=== PATIENT | female | born 1980 | race Caucasian/White ===

== ENCOUNTER 2025-04-18 20:24 | Emergency (ER) | payer SELFPAY ==
--- NOTE | ~2025-04-18 | XR_ITS ---
CLINICAL HISTORY: pain 2 view chest x-ray Comparison: None provided Findings: No consolidation or effusion. Normal size heart. No acute fracture. IMPRESSION: 1. No acute findings. This document has been electronically signed by: Veronica Ace MD on 04/18/2025 21:39:51
[2025-04-18 20:50] VITALS: BP 128/77; PULSE 80; RESP 16; TEMP 36.3; O2SAT 99; BMI 35.7
--- NOTE | 2025-04-18 20:51 | ED_ITS ---
HPI - General Adult General Chief complaint: Dizziness Stated complaint: High blood pressure Time Seen by Provider: 04/19/25 00:56 Source: patient Limitations: no limitations History of Present Illness ED Provider: Elvira Coleman PA-C HPI narrative: 44-year-old female presents with hypertension. Patient states she has been checking her blood pressure every morning and has been elevated, for unclear duration. Associated intermittent chest pain, shortness of breath dizziness and headache. Patient has not followed up with the primary care provider. Patient's friend gave her some of his lisinopril today. Related Data Allergies Allergy/AdvReac Type Severity Reaction Status Date / Time No Known Allergies Allergy Verified 04/18/25 20:56 Review of Systems 2 Review of Systems: Yes all other systems are reviewed and are negative Constitutional: Constitutional: Denies fatigue, Denies fever(s) and Denies headache(s) ENT: Denies dizziness and Denies headache(s) Cardiovascular: Cardiovascular: Reports chest pain and Reports dyspnea Respiratory: Respiratory: Denies cough and Reports dyspnea Gastrointestinal: Gastrointestinal: Denies nausea and Denies vomiting Neurologic: Denies dizziness and Denies headache(s) Endocrine: Endocrine: Denies fatigue [facility] Past Medical History Attestation statement: The following information was validated with the patient. Social History Social History Alcohol intake: never Smoked in Last 30 Days: Yes Advance Directives: No Do you have a plan to hurt others: No Plan Patient : No Physical Exam ED Vital Signs: BMI result Body Mass Index 35.7 Const Other: Alert Orientation/consciousness: patient oriented x3 Resp Effort & Inspection: normal respiratory effort Cardio Other: Normal peripheral perfusion Skin Other: Warm dry no rash Neuro General: patient oriented x3, gait normal, no focal motor deficits and CN's II- XI intact bilaterally Psych Other: Cooperative Course Course Course Narrative: RME, this is a rapid medical exam performed by Jose Floyd please refer to primary provider for complete H&P- 44-year-old female presents for evaluation of dizziness and shortness of breath. Plan for cardiac workup. EKG, labs, chest x-ray. Medical Decision Making Medical Decision Making [facility] Narrative: 44-year-old female presents with hypertension. Patient states she has been checking her blood pressure every morning and has been elevated, for unclear duration. Associated intermittent chest pain, shortness of breath dizziness and headache. Patient has not followed up with the primary care provider. Patient's friend gave her some of his lisinopril today. No known underlying issues History: Per patient I have considered the following differential diagnoses: ACS, end-organ damage, hypertensive urgency, hypertensive emergency Plan: ACS was considered, Screening labs including cardiac enzymes EKG and chest x-ray were obtained, everything is negative. Furthermore, the patient has no documented elevated blood pressures here in the emergency room, I do not believe that a systolic blood pressure of 200 resolved with the 1 dose of lisinopril. I do not believe her blood pressure cuff at home is accurate. I have advised that the patient should follow up with her primary care provider for further discussion about implementing management of hypertension. I have independently reviewed the following tests: Labs: Slight leukocytosis, not anemic, no electrolyte abnormality, renal function appropriate, troponin negative EKG: Normal sinus rhythm, rate of 77, no ischemic changes no ectopy QTC 466 Chest x-ray:Findings: No consolidation or effusion. Normal size heart. No acute fracture. IMPRESSION: 1. No acute findings. Lab Data 04/18/25 21:32 04/18/25 21:32 Labs: Lab Results 04/18/25 Range/Units 21:32 WBC 12.4 H (4.8-10.8) X10*3/uL RBC 4.96 (4.20-5.50) X10*6/uL Hgb 13.4 (12.0-16.0) g/dl Hct 40.0 (37.0-47.0) % MCV 80.6 (80.0-98.0) fL MCH 27.0 (27.0-33.0) pg MCHC 33.5 (31.0-35.0) g/dl RDW 15.4 (11.0-16.0) % Plt Count 478 H (160-400) X10*3/uL MPV 9.2 L (9.4-12.3) fL Immature Gran % (Auto) 0.6 H (0.0-0.4) % Neut % (Auto) 43.9 L (45-73) % Lymph % (Auto) 45.1 H (20-40) % [place] % (Auto) 5.6 (2-11) % Eos % (Auto) 4.0 (0-4) % Baso % (Auto) 0.8 (0-2) % Lymph # (Auto) 5.6 H (1.2-4.9) X10*3/uL [place] # (Auto) 0.7 (0.1-1.2) X10*3/uL Eos # (Auto) 0.5 H (0.0-0.4) X10*3/uL Baso # (Auto) 0.1 (0.0-0.2) X10*3/uL Abs Immat Gran (auto) 0.08 H (0.00-0.03) X10*3/uL Absolute Neuts (auto) 5.5 (2.0-8.3) x10*3/uL Absolute Nucleated RBC 0.000 (0.0-0.012) X10*3/uL Nucleated RBC % (auto) 0.0 (0.0-0.2) /100WBC Smear Tech's Comments VERIFIED Sodium 144 (135-145) mmol/L Potassium 3.2 L (3.3-5.1) mmol/L Chloride 113 H (96-108) mmol/L Carbon Dioxide 24 (22-29) mmol/L Anion Gap 10 L (12-20) BUN 8 L (9-16) mg/dL Creatinine 0.61 (0.5-1.4) mg/dL Estim Creat Clear Calc 132.9 Estimated GFR > 60 Random Glucose 90 (60-115) mg/dL Calcium 8.9 (8.4-10.2) mg/dL Magnesium 2.3 (1.6-2.6) mg/dL Total Bilirubin 0.2 (0.0-1.0) mg/dL AST 23 (5-31) U/L ALT 17 (0-31) U/L Alkaline Phosphatase 76 (39-117) U/L Troponin I High Sens < 2.7 (<3.5-17.0) ng/L B-Natriuretic Peptide 37 (<100) pg/mL Total Protein 7.4 (6.5-8.0) g/dL Albumin 4.3 (3.5-5.0) g/dL Lipase 23 (8-78) U/L Beta HCG, Quant < 2 mIU/mL Influenza Type A (PCR) NEGATIVE (Negative) Influenza Type B (PCR) NEGATIVE (Negative) RSV RNA Qual (PCR) NEGATIVE (Negative) SARS-CoV-2 RNA (RT-PCR) NEGATIVE (Negative) Discharge Plan Discharge Clinical Impression: Hypertension, Chest pain Patient Disposition: Home, Self-Care Additional Instructions: Handwritten instructions given to the patient during down time Print Language: Angolan
--- NOTE | 2025-04-18 20:59 | ECG_ITS ---
Test Reason : HIGH BLOOD PRESSURE Blood Pressure : */* mmHG Vent. Rate : 77 BPM Atrial Rate : 77 BPM P-R Int : 150 ms QRS Dur : 80 ms QT Int : 412 ms P-R-T Axes : 59 -4 24 degrees QTcB Int : 466 ms Normal sinus rhythm Minimal voltage criteria for LVH, may be normal variant ( R in aVL ) Borderline ECG No previous ECGs available Referred By: Augusto Floyd Electronically Signed By: Thang Antonio
[2025-04-18 21:38] LABS: Basophils Absolute Auto 0.1 X10*3/uL (0.0-0.2); Basophils Percent Auto 0.8 % (0-2); Eosinophils Absolute Auto 0.5 X10*3/uL (0.0-0.4); Hemoglobin 13.4 g/dl (12.0-16.0); Imm Gran Abs Auto 0.08 X10*3/uL (0.00-0.03); Imm Gran Pct Auto 0.6 % (0.0-0.4); Lymphocytes Absolute Auto 5.6 X10*3/uL (1.2-4.9); Lymphocytes Percent Auto 45.1 % (20-40); MANUAL DIFF FLAG SCAN; Mean Corpuscular HGB Conc 33.5 g/dl (31.0-35.0); Mean Corpuscular Volume 80.6 fL (80.0-98.0); Mean Platelet Volume 9.2 fL (9.4-12.3); Monocytes Absolute Auto 0.7 X10*3/uL (0.1-1.2); Monocytes Percent Auto 5.6 % (2-11); Neutrophils Absolute Auto 5.5 x10*3/uL (2.0-8.3); Neutrophils Percent Auto 43.9 % (45-73); Platelet Count 478 X10*3/uL (160-400); Red Blood Count 4.96 X10*6/uL (4.20-5.50); Red Cell Distribution Width 15.4 % (11.0-16.0); SCAN SMEAR FLAG 1; White Blood Count 12.4 X10*3/uL (4.8-10.8)
[2025-04-18 21:55] LABS: SLIDE REVIEW VERIFIED
[2025-04-18 22:02] LABS: B Type Natriuretic Peptide 37 pg/mL (<100)
[2025-04-18 22:04] LABS: Alanine Aminotransferase 17 U/L (0-31); Albumin Level 4.3 g/dL (3.5-5.0); Alkaline Phosphatase 76 U/L (39-117); Anion Gap 10 (12-20); Aspartate Amino Transferase 23 U/L (5-31); Bilirubin Total 0.2 mg/dL (0.0-1.0); Blood Urea Nitrogen 8 mg/dL (9-16); Calcium 8.9 mg/dL (8.4-10.2); Carbon Dioxide 24 mmol/L (22-29); Chloride 113 mmol/L (96-108); Creatinine Clr Calc Pharmacy 132.9; Estimated Glomerular Filt Rate > 60; Glucose Random 90 mg/dL (60-115); Lipase 23 U/L (8-78); Magnesium 2.3 mg/dL (1.6-2.6); Potassium 3.2 mmol/L (3.3-5.1); Sodium 144 mmol/L (135-145); Total Protein 7.4 g/dL (6.5-8.0)
[2025-04-18 22:06] LABS: HCG Quantitative < 2 mIU/mL; Troponin-I High Sensitivity < 2.7 ng/L (<3.5-17.0)
[2025-04-18 22:21] LABS: Influenza A PCR NEGATIVE (Negative); Influenza B PCR NEGATIVE (Negative); Resp Syncy Virus RNA Qual PCR NEGATIVE (Negative); SARS COV2 PCR INHOUSE NEGATIVE (Negative)
[2025-04-19 01:02] VITALS: BP 101/57; PULSE 68; RESP 20; TEMP 36.4; O2SAT 96
[2025-04-19 01:04] VITALS: BP 99/64; PULSE 74
[2025-04-19 01:06] VITALS: BP 108/72; PULSE 78
== END 2025-04-19 04:25 | disposition home or self-care (01) ==
PROVIDERS: Physician Assistant; Emergency Provider Emergency Medicine
DX: I10 Essential (primary) hypertension (principal); R07.9 Chest pain, unspecified; R42 Dizziness and giddiness; R06.02 Shortness of breath; Z03.818 Encounter for observation for suspected exposure to other biological agents ruled out; Z79.899 Other long term (current) drug therapy
CPT/HCPCS: 0241U; 71046; 80053; 83690; 83735; 83880; 84484; 84702; 85025; 93005; 99283; 99284

== ENCOUNTER → 2025-04-18 20:59 | Outpatient (BNV) | payer SELFPAY | PROVIDERS: Visit Provider Student in an Organized Health Care Education/Training Program | DX: R07.9 Chest pain, unspecified (principal) | CPT/HCPCS: 71046 ==

== ENCOUNTER → 2025-04-18 20:59 | Outpatient (BNV) | payer SELFPAY | PROVIDERS: Visit Provider Internal Medicine Cardiovascular Disease | DX: I10 Essential (primary) hypertension (principal) | CPT/HCPCS: 93010 ==